=== PATIENT | male | born 1955 | race Caucasian/White ===

== ENCOUNTER 2019-02-11 10:02 | Day surgery (SDC) | payer OTHER ==
[2019-02-11] MEDS: SOD CHLORIDE 0.9% 1,000 ML IV (07:00)
[~2019-02-11 10:02] MED LIST: CEFAZOLIN 2 GM/50 ML (PMX) 50 ML IVPB
[2019-02-11] MEDS ORDERED: ETOMIDATE 20 MG INJ (11:00)
[2019-02-11 11:02] LABS: ADD MAN DIFF? NO
[2019-02-11 11:05] LABS: BASOPHILS % 0.8 % (0.0-2.0); EOSINOPHILS # 0.1 10^3/ul (0.0-0.5); EOSINOPHILS % 2.2 % (0.0-7.0); HEMATOCRIT 40.2 % (42.0-52.0); LYMPHOCYTES % 19.5 % (15.0-51.0); MEAN CORPUSCULAR HEMOGLOBIN 29.5 pg (29.0-33.0); MEAN CORPUSCULAR HGB CONC 32.3 g/dl (32.0-37.0); MEAN CORPUSCULAR VOLUME 91.4 fl (82.0-101.0); MEAN PLATELET VOLUME 9.4 fl (7.4-10.4); MONOCYTE # 0.5 10^3/ul (0.3-0.9); MONOCYTES % 10.5 % (0.0-11.0); NEUTROPHIL # 3.3 10^3/ul (1.6-7.5); NEUTROPHILS % 66.8 % (39.0-77.0); PLATELET COUNT 272 10^3/UL (140-415); RED CELL DISTRIBUTION WIDTH 14.6 % (11.5-14.5)
[2019-02-11] MEDS ORDERED: PROPOFOL 40 ML (11:05)
[2019-02-11] MEDS ORDERED: FAMOTIDINE 20 MG INJ (11:05)
[2019-02-11] MEDS ORDERED: CEFAZOLIN 1 GM INJ ×2 (11:05→11:35)
[2019-02-11] MEDS ORDERED: LIDOCAINE 2% (SDV) 5 ML INJ (11:05)
[2019-02-11] MEDS ORDERED: ONDANSETRON 4 MG INJ ×2 (11:05→11:35)
[2019-02-11] MEDS ORDERED: FENTAnyl 50 MCG/ML VIAL ×2 (11:05→11:43)
[2019-02-11] MEDS ORDERED: MIDAZOLAM 1 MG/ML 2 ML INJ (11:05)
[2019-02-11 11:20] LABS: ALANINE AMINOTRANSFERASE 20 IU/L (13-69); ALBUMIN 4.1 g/dl (3.3-4.9); ALBUMIN/GLOBULIN RATIO 1.24; ALKALINE PHOSPHATASE 83 IU/L (42-121); ANION GAP 8 (5-13); ASPARTATE AMINO TRANSFERASE 22 IU/L (15-46); BILIRUBIN,INDIRECT 0.6 mg/dl (0-1.1); BILIRUBIN,TOTAL 0.6 mg/dl (0.2-1.3); BLOOD UREA NITROGEN 15 mg/dl (7-20); CALCIUM 8.6 mg/dl (8.4-10.2); CARBON DIOXIDE 27 mmol/L (21-31); CHLORIDE 105 mmol/L (97-110); CREATININE 1.14 mg/dl (0.61-1.24); Estimated GFR > 60 mL/min (>60); GLUCOSE 99 mg/dl (70-220); POTASSIUM 4.3 mmol/L (3.5-5.1); SODIUM 140 mmol/L (135-144); TOTAL PROTEIN 7.4 g/dl (6.1-8.1)
[2019-02-11 11:25] LABS: INR 0.97
[2019-02-11 11:26] LABS: PARTIAL THROMBOPLASTIN TIME 30.5 Sec (23.0-35.0)
[2019-02-11] MEDS: BUPIVACAINE 0.25% (MPF) 30 ML INJ INJ (11:48)
[2019-02-11] MEDS ORDERED: HYDROCODONE/APAP (5/325) TAB PO (12:30)
== END 2019-02-11 13:40 | disposition home or self-care (01) ==
LOC: SDS 10:02
DX: D17.1 Benign lipomatous neoplasm of skin and subcutaneous tissue of trunk (principal); C34.90 Malignant neoplasm of unspecified part of unspecified bronchus or lung
CPT/HCPCS: 14001; 71045; 80053; 85025; 85610; 85730; 88307; 93005